=== PATIENT | female | born 1950 | race Caucasian/White ===

== ENCOUNTER 2016-10-15 06:00 | Inpatient (IN) | payer OTHER ==
[~2016-10-15 06:00] MED LIST: ARIMIDEX1 M1 PO; BAYER ADVANCED500 M1 PO; FIBER GUMMIES1 EACH PO; GUMMI BEAR MUL1 EAC1 PO; IBUPROFEN800 M1 PO; INDOMETHACIN75 M1 PO; MOBIC15 M2 PO; NORCO 7.5-3251 EACH PO; VITAMIN D-32000 UNI4 PO
[2016-10-15 06:43] LABS: PROTHROMBIN TIME 11.3 SECONDS (9.0-13.6)
[2016-10-15 06:50] LABS: ANION GAP 11 mmol/L (0-20); BLOOD UREA NITROGEN 13 mg/dl (6-24); CALCIUM 8.8 mg/dl (8.5-10.5); CARBON DIOXIDE-VENOUS 27 mmol/L (22-32); CHLORIDE 108 mmol/l (96-110); CREATININE 0.81 mg/dl (0.50-1.10); GLUCOSE 102 mg/dL (70-110); POTASSIUM 4.1 mmol/L (3.7-5.1); SODIUM 142 mmol/L (135-145); eGFR VALUE FOR BLACK 90 mL/Min
[2016-10-16 05:56] LABS: EOS % 0.1 % (0-7); HCT-HEMATOCRIT 35.4 % (34.0-49.0); HGB-HEMOGLOBIN 11.9 gm/dl (12.0-15.5); IMMATURE GRANULOCYTES ABSOLUTE 0.03 tho/cmm (0-0.03); IMMATURE GRANULOCYTES PERCENT 0.2 % (0-0.3); LYMPH % 8.1 % (20-45); LYMPH ABSOLUTE COUNT 1.2 tho/cmm (0.8-4.5); MCH (MEAN CORPUSCULAR HGB) 30.8 pg (28.0-32.0); MCHC MEAN CORPUSCULAR HGB CONC 33.6 % (32.0-36.0); MCV (MEAN CELL VOLUME) 91.7 fl (82.0-96.0); MEAN PLATELET VOLUME 10.9 cmc (9.4-12.4); MONO % 5.8 % (0-12); MONOCYTE ABSOLUTE COUNT 0.9 tho/cmm (0.0-1.2); NEUTROPHIL ABSOLUTE COUNT 12.7 tho/cmm (1.6-8.0); NEUTROPHIL-AUTOMATED 12.7 tho/cmm (1.6-8.0); NEUTROPHILS % 85.8 % (40-80); PLATELET COUNT 274 tho/cmm (150-450); RED BLOOD COUNT 3.86 mil/cmm (4.00-5.20); RED CELL DISTRIBUTION WIDTH 12.6 % (12.4-16.4); WHITE BLOOD COUNT 14.8 tho/cmm (4.0-10.0)
[2016-10-17] MEDS ORDERED: ASPIRIN81 M1 PO (11:21)
[2016-10-17] MEDS ORDERED: OXYCODONE HCL5 M1 PO (11:23)
[2016-10-17] MEDS ORDERED: ULTRAM50 M1 PO (11:25)
[2016-10-17] MEDS ORDERED: MOBIC7.5 M2 PO (11:27)
[2016-10-17] MEDS ORDERED: TYLENOL325 M2 PO (11:28)
[2016-10-17] MEDS ORDERED: SENNA S TABLET1 EACH PO (11:30)
== END 2016-10-17 12:50 | DRG 470 ==
LOC: SHSB 06:00 → ORE 09:35 → PACU 11:31 → 5EA 12:50
PROVIDERS: ADMIT Orthopaedic Surgery Foot and Ankle Surgery
PROC: 0SRC0J9 Replacement of Right Knee Joint with Synthetic Substitute, Cemented, Open Approach (ICD-10-PCS; principal; 2016-10-15)
DX: M17.11 Unilateral primary osteoarthritis, right knee (principal); E55.9 Vitamin D deficiency, unspecified; K21.9 Gastro-esophageal reflux disease without esophagitis; E78.5 Hyperlipidemia, unspecified; Z85.828 Personal history of other malignant neoplasm of skin; Z86.010 Personal history of colon polyps; Z85.3 Personal history of malignant neoplasm of breast; E66.9 Obesity, unspecified; Z68.39 Body mass index [BMI] 39.0-39.9, adult; K59.00 Constipation, unspecified; M23.91 Unspecified internal derangement of right knee; L57.0 Actinic keratosis
CPT/HCPCS: C1713; C1776; J0171; J0690; J1885; J2270; J2795; J7050